=== PATIENT | female | born 1950 | race Caucasian/White ===

== ENCOUNTER 2018-03-25 17:18 | Emergency (ER) | payer MEDICARE, OTHER, SELFPAY ==
[2018-03-25 17:21] VITALS: BP 111/78; PULSE 77; RESP 20; TEMP 36.8; O2SAT 97; BMI 39.1
[2018-03-25 22:07] VITALS: BP 105/78; PULSE 76; RESP 18; O2SAT 100
[2018-03-25 23:00] VITALS: BP 117/51; PULSE 68; RESP 16
--- NOTE | 2018-03-25 23:22 | ED.NAVMDI ---
HPI - Nausea/Vomiting/Diarrhea General Chief complaint: Nausea/Vomiting/Diarrhea Stated complaint: SENT BY MD DEHYDRATION Time Seen by Provider: 03/25/18 23:22 Source: patient, family and RN notes reviewed Mode of arrival: ambulatory Limitations: no limitations History of Present Illness HPI Narrative: Patient is a 67-year-old female who presents for evaluation for possible dehydration. She overall has had fatigue over the last day or so she sometimes is having shaking but no fever. She has been eating and drinking some but definitely has a decreased appetite. No nausea vomiting or abdominal pain. She does have a productive cough which she says has been ongoing for a number of years and has not changed. She denies any chest pain or shortness of breath. She has no painful or frequent urination. Related Data Home Medications Medication Instructions Recorded Confirmed MULTIVITAMIN/MINERALS (Thera M 1 tab PO #0 05/21/08 Plus Tablet) carbamazepine 200 mg PO Q12H 03/26/18 03/26/18 hyoscyamine sulfate 0.125 mg PO BID-QID PRN 03/26/18 03/26/18 simvastatin 20 mg PO QAM 03/26/18 03/26/18 Allergies Allergy/AdvReac Type Severity Reaction Status Date / Time TAPE Allergy Severe REMOVES Uncoded 02/26/18 11:51 TOP LAYER OF SKIN PAPER/SILK TAPE OK Review of Systems Review of Systems All systems reviewed & are unremarkable except as noted in HPI and below Constitutional Reports body ache(s), Reports chills, Reports fatigue, Denies fever(s), Denies frequent falls, Denies lethargy and Reports malaise ENT Ears, Nose, Mouth, and Throat: Denies change in voice, Denies dizziness, Denies neck pain and Denies sore throat Cardiovascular Denies chest pain, Denies irregular heart rhythm, Denies lightheadedness, Denies palpitations and Denies orthopnea Respiratory Reports as per HPI, Denies change in phlegm color and Reports excessive phlegm production Gastrointestinal Gastrointestinal: Denies abdominal pain, Denies change in bowel habits, Denies diarrhea, Denies nausea and Denies vomiting Genitourinary Denies hematuria, Denies flank pain, Denies urinary incontinence and Denies urinary urgency Musculoskeletal Denies neck pain and Denies numbness Neurologic Denies behavioral changes, Denies confusion, Denies dizziness, Denies frequent falls and Denies numbness Psychiatric Denies behavioral changes and Denies confusion Endocrine Reports fatigue and Denies palpitations PFSH Medical History Cancer of kidney (Acute) History of nephrectomy, unilateral (Acute) Social History Smoking Status: Never smoker Exam Const General: cooperative and well developed Nutritional Appearance: well nourished Orientation: alert, awake, oriented x3 and not confused HENMT Head: normocephalic and atraumatic Teeth and gingiva: dentition normal Throat: tonsils normal and uvula midline Neck Neck: full ROM, no meningeal signs and midline deformity Resp Effort & Inspection: normal respiratory effort, able to speak in complete sentences, no respiratory distress and no use of accessory muscles Auscultation: clear to auscultation bilaterally, no rales, no rhonchi and no wheezes Cardio Rate: regular rate Rhythm: regular rhythm Heart Sounds: no click, no gallops, no murmurs and no rubs Pulses: normal peripheral pulses GI Inspection: non-distended Palpation: soft, no hepatosplenomegaly, No guarding, No pulsatile mass and No tender Auscultation: normal bowel sounds Skin General: no rashes or lesions noted, No jaundice and No petechiae Neuro General: alert, oriented x3, gait normal and no focal motor deficits Cranial Nerves: CN's II-XI intact bilaterally Speech: speech normal MDM - Nausea/Vomiting/Diarrhea MDM Narrative Medical decision making narrative: Patient is feeling much better after IV fluids. No leukocytosis or abnormal all labs. She is afebrile in the ED. Medical Records Attestation: I reviewed the patient's medical records. Lab Data Attestation: I reviewed the patient's lab results. Result diagrams: 03/25/18 23:30 03/25/18 23:30 Lab Results 03/25/18 03/25/18 03/25/18 Range/Units 23:30 23:30 23:30 WBC 6.3 (4.5-11.0) X10^3/uL RBC 4.64 (4.0-5.2) X10^6/uL Hgb 13.7 (12.0-16.0) g/dL Hct 39.8 (36-46) % MCV 85.8 (80-100) fL MCH 29.4 (26-34) PG MCHC 34.3 (30-36) % RDW 14.3 (11.6-14.8) % Plt Count 235 (150-400) X10^3/uL Neut % (Auto) 49.2 L (50-75) % Lymph % (Auto) 38.5 (25-40) % [place] % (Auto) 10.1 (3-14) % Eos % (Auto) 1.3 L (2-4) % Baso % (Auto) 0.9 (0-2) % Neut # (Auto) 3100 (0352-6969) /uL Sodium 142 (137-145) mmol/L Potassium 4.3 (3.4-5.1) mmol/L Chloride 103.0 (98-107) mmol/L Carbon Dioxide 26.0 (22-32) mmol/L BUN 20.0 H (7-17) mg/dL Creatinine 1.60 H (0.52-1.04) mg/dL Estimated GFR 32.0 L (>60) mL/min BUN/Creatinine Ratio 12.5 (6-22) Glucose 84 (80-110) mg/dL Lactate 0.8 (0.7-2.1) mmol/L Calcium 10.1 (8.4-10.2) mg/dL Total Bilirubin 1.1 (0.2-1.3) mg/dL AST 43 H (14-36) IU/L ALT 39 (9-52) IU/L Alkaline Phosphatase 90 (38-126) U/L Total Protein 7.8 (6.3-8.2) g/dL Albumin 4.7 (3.5-5.0) g/dL Globulin 3.1 (1.7-4.1) g/dL Albumin/Globulin Ratio 1.5 (1.0-2.8) Lipase 167 (23-300) U/L Imaging Data Chest x-ray: Attestation: I personally reviewed and interpreted this imaging study as follows: My impression: No acute abnormality Discharge Plan Departure Patient Disposition: Home, Self-Care Clinical Impression: Dehydration Instructions: Dehydration Activity Restrictions/Additional Instructions: *You have been diagnosed with dehydration *What to do: Increase fluid intake with water and/or Gatorade, at this time blood work and chest x-ray do not show any abnormalities *Take medications as directed *Follow up with your primary care provider in 2-3 days *Return to ER if you should have inability to tolerate fluids, dizziness, lightheadedness or any new, worsening or concerning symptoms Prescriptions: No Action MULTIVITAMIN/MINERALS (Thera M Plus Tablet) 1 tab PO Qty: 0 RF: 0 simvastatin 20 mg Tablet 20 mg PO QAM RF: 0 hyoscyamine sulfate 0.125 mg Tablet, Sublingual 0.125 mg PO BID-QID PRN (Reason: Pain (Scale Score 4-6)) RF: 0 carbamazepine 200 mg Capsule, Er Multiphase 12 Hr 200 mg PO Q12H RF: 0 Referrals: Erica Galindo PA-C [Primary Care Provider] - None
--- NOTE | 2018-03-25 23:29 | DI.RAD.S_ITS ---
PROCEDURE: XR CHEST 2V INDICATIONS: cough TECHNIQUE: 2 views of the chest were acquired. COMPARISON: Outside Film, CR, XR CHEST 2 VIEWS, 01/08/2018, 9:01. FINDINGS: Surgical changes and devices: None. Lungs and pleura: No pleural effusions or pneumothorax. Lungs are clear. Mediastinum: Mediastinal contours are normal. Heart size is normal. Bones and chest wall: No suspicious bony abnormalities. Soft tissues appear unremarkable. IMPRESSION: No acute cardiopulmonary disease process. Dictated by: Grace Chavez MD, PhD on 03/26/2018 at 8:38 Approved by: Grace Chavez MD, PhD on 03/26/2018 at 8:39
[2018-03-25 23:44] LABS: Add Manual Diff / Slide Review NO; Basophils Percent Auto 0.9 % (0-2); Eosinophils Percent Auto 1.3 % (2-4); Hematocrit 39.8 % (36-46); Hemoglobin 13.7 g/dL (12.0-16.0); Lymphocytes Percent Auto 38.5 % (25-40); Mean Corpuscular HGB Conc 34.3 % (30-36); Mean Corpuscular Hemoglobin 29.4 PG (26-34); Mean Corpuscular Volume 85.8 fL (80-100); Monocytes Percent Auto 10.1 % (3-14); Neutrophils Absolute Auto 3100 /uL (3000-5900); Neutrophils Percent Auto 49.2 % (50-75); Platelet Count 235 X10^3/uL (150-400); Red Blood Cell Count 4.64 X10^6/uL (4.0-5.2); Red Cell Distribution Width 14.3 % (11.6-14.8); White Blood Cell Count 6.3 X10^3/uL (4.5-11.0)
[2018-03-25] MEDS: SODIUM CHLORIDE 0.9% 1,000 ML 150 ML IV (23:45)
[2018-03-25 23:52] LABS: Lactate (Lactic Acid) 0.8 mmol/L (0.7-2.1)
[2018-03-25 23:53] LABS: Alanine Aminotransferase 39 IU/L (9-52); Albumin 4.7 g/dL (3.5-5.0); Albumin Globulin Ratio 1.5 (1.0-2.8); Alkaline Phosphatase 90 U/L (38-126); Aspartate Aminotransferase 43 IU/L (14-36); BUN Creatinine Ratio 12.5 (6-22); Bilirubin Total 1.1 mg/dL (0.2-1.3); Calcium 10.1 mg/dL (8.4-10.2); Globulin 3.1 g/dL (1.7-4.1); Glucose 84 mg/dL (80-110); HEMOLYSIS < 15 (0-50); Lipase 167 U/L (23-300); Potassium 4.3 mmol/L (3.4-5.1); Sodium 142 mmol/L (137-145); Total Protein 7.8 g/dL (6.3-8.2)
[2018-03-26 00:13] VITALS: PULSE 65; RESP 16; O2SAT 97
[2018-03-26 01:18] VITALS: BP 131/53; PULSE 67; RESP 18; O2SAT 96
[2018-03-26 01:59] VITALS: BP 127/53; PULSE 64; RESP 14; O2SAT 98
== END 2018-03-26 02:13 | disposition home or self-care (01) ==
PROVIDERS: Emergency Provider Emergency Medicine; PCP Physician Assistant Medical
DX: E86.0 Dehydration (principal)
CPT/HCPCS: 36591; 51798; 71046; 80053; 83605; 83690; 85025; 96360; 96361; 99284

== ENCOUNTER → 2018-09-01 12:34 | Outpatient (CLI) | payer MEDICARE, OTHER, SELFPAY ==
--- NOTE | 2018-09-01 | DI.CT.S_ITS ---
PROCEDURE: CT SINUS SCREEN WO CON INDICATIONS: SINIUSITIS TECHNIQUE: Noncontrast 3.0 mm axial images acquired from the frontal sinuses to the mid-sella, with coronal and sagittal reformats. For radiation dose reduction, the following was used: automated exposure control, adjustment of mA and/or kV according to patient size. COMPARISON: [facility], CT, SINUS SCREEN WO CONTRAST, 03/15/2015, 11:39. FINDINGS: Image quality: Diagnostic, with note made of motion artifact. Maxillary Sinuses: No bony remodeling or destruction. Sinuses are clear. Ethmoid Air Cells: No bony remodeling or destruction. Sinuses are clear. Sphenoid Sinuses: No bony remodeling or destruction. Sinuses are clear. Frontal Sinuses: No bony remodeling or destruction. Sinuses are clear. Ostiomeatal Complexes: Ostiomeatal complexes are patent, yet are constitutionally narrowed. There are bilateral Suzy cells. Miscellaneous: Visualized intra-orbital contents are normal. No lily bullosa or paradoxical turbinate curvature. There is mild S-shaped nasal septal deviation. Incidental note is made of hyperostosis frontalis. This is not considered to be pathologic in a woman of this age. IMPRESSION: No significant active paranasal sinus disease is seen. Constitutionally narrowed ostiomeatal complexes. S-shaped nasal septal deviation. Dictated by: Jluis Daley M.D. on 09/01/2018 at 12:01 Approved by: Jluis Daley M.D. on 09/01/2018 at 12:02
== END ==
PROVIDERS: PCP Physician Assistant Medical; Visit Provider Physician Assistant Medical
DX: J01.90 Acute sinusitis, unspecified (principal); J34.2 Deviated nasal septum
CPT/HCPCS: 70486

== ENCOUNTER → 2019-03-09 11:04 | Outpatient (CLI) | payer MEDICARE, OTHER, SELFPAY ==
[2019-03-09 12:07] LABS: Erythrocyte Sedimentation Rate 11 MM/HR (0-20)
[2019-03-09 12:38] LABS: Blood Urea Nitrogen 17 mg/dL (7-17); Estimated Glomerular Filt Rate 29.7 mL/min (>60)
== END ==
PROVIDERS: PCP Physician Assistant Medical; Visit Provider Family Medicine
DX: G44.52 New daily persistent headache (NDPH) (principal)
CPT/HCPCS: 36415; 82565; 84520; 85651

== ENCOUNTER → 2019-03-11 19:00 | Outpatient (CLI) | payer MEDICARE, OTHER, SELFPAY ==
--- NOTE | 2019-03-11 19:03 | DI.MRI.S_ITS ---
PROCEDURE: MR HEAD/BRAIN WO CON INDICATIONS: headaches TECHNIQUE: Non-contrast axial T1 spin echo, axial T2 fast spin echo, sagittal and axial FLAIR, coronal T2 fast spin echo, axial gradient echo, axial diffusion and ADC through the brain. COMPARISON: None. FINDINGS: Image quality: Excellent. CSF spaces: Ventricles appear symmetric in size and shape. Basal cisterns are patent. No extra-axial fluid collections. Brain: No intracranial bleeds or mass effects. There is cerebral volume loss for age. There are periventricular and deep white matter chronic small vessel ischemic changes. Brainstem appears normal. Diffusion-weighted images show no acute ischemic insults. No chronic ischemic insults. Normal intravascular flow voids are present. Skull and face: Calvarial bone marrow is normal in signal. Orbits are normal. Sinuses: Sinuses and mastoids are clear. IMPRESSION: No acute signal abnormality. Chronic age-appropriate senescent changes as above. Dictated by: Michele Lockhart M.D. on 03/12/2019 at 9:19 Approved by: Michele Lockhart M.D. on 03/12/2019 at 9:25
== END ==
PROVIDERS: Family Provider Physician Assistant Medical; PCP Physician Assistant Medical; Visit Provider Family Medicine
DX: R51 Headache (principal)
CPT/HCPCS: 70551

== ENCOUNTER 2019-06-19 10:25 | Day surgery (SDC) | payer MEDICARE, OTHER, SELFPAY ==
[2019-06-19] VITALS (10 sets, daily range): BP systolic 136–154; BP diastolic 70–95; PULSE 57–79; RESP 13–17; TEMP 36.4; O2SAT 93–100
--- NOTE | 2019-06-19 | PATH_ITS ---
[facility] Accession Number: [id number] . 01 Material submitted: . PART A: gastrointestinal site - GASTRIC FUNDIC POLYPS PART B: esophagus, E-G Junction - GE JUNCTION BIOPSIES . 01 Clinical history: . A: POSSIBLE GASTRIC FUNDIC POLYPS . 02 Diagnosis: A. Stomach, Polyps, Biopsies: Fundic gland polyps. No evidence of Helicobacter on H/E stain. Negative for intestinal metaplasia. Negative for dysplasia and malignancy. . B. Gastroesophageal Junction, Biopsies: Squamocolumnar junctional mucosa with mild active inflammation. Negative for intestinal metaplasia. Negative for dysplasia and malignancy. [facility]/06/22/2019 . 02 Electronically signed: . Robyn Bello MD, Pathologist NPI- [id number] . 01 Gross description: . Part A: GASTRIC FUNDIC POLYPS: Received in formalin are 4 fragment(s) of messer, soft tissue measuring 0.1 x 0.1 x 0.1 cm to 0.3 x 0.3 x 0.2 cm which is entirely submitted and submitted entirely in 1 cassette(s) Part B: GE JUNCTION BIOPSIES: Received in formalin are 3 fragment(s) of messer, soft tissue measuring 0.1 x 0.1 x 0.1 cm to 0.2 x 0.2 x 0.2 cm which is entirely submitted and submitted entirely in 1 cassette(s) /DMC /DMC . 02 Pathologist provided ICD-10: R10.9 . 02 CPT . 361885, [id number] Performed at: 01 [facility] [address] [facility], [place], [place] [id number] MD Bret Buchanan MD Phone: [phone] Performed at: 02 [facility] [place] [address] [place] [id number] MD Robyn Bello MD Phone: [phone]
[2019-06-19] MEDS: SODIUM CHLORIDE 0.9% 1,000 ML 200 ML IV (10:00)
--- NOTE | 2019-06-19 11:15 | PM.PREOP ---
Pre-operative Note Interval Note History & Physical reviewed/Exam performed by Physician: Yes Changes to H&P: No H&P completed within 30 days and has changed as indicated here:: See note 06/03 for H&P
--- NOTE | 2019-06-19 12:07 | P.OP.ENDO_ITS ---
Operative Date/Time/Diagnoses Date of procedure: 06/19/19 Time of procedure: 11:44 Post-op diagnosis: same (No cause for clearing of throat found. hiatal hernia. Possible Friedman's esophagus. extensive gastric fundic polyps.) Procedure & Clinicians Study performed: EGD with cold biopsy Same procedure as scheduled: Yes Indications: Evaluate for cause of chronic irritation to the throat with clearing of throat Surgeon: Baljit Winters Procedure Notes SCOAP/Timeout: Performed Procedure in detail: The patient had topical anesthetic applied to oropharynx. She was placed in left lateral decubitus position and underwent IV sedation directed by the surgeon consisting of fentanyl and Versed. A bite block was inserted and the scope was advanced through it into the esophagus. I carefully viewed the upper airway and the cord structures and the structures above the cords including the epiglottis and arytenoids all look normal. there was no inflammation. The esophagus was unremarkable though a bit short. GE junction was noted at 30 cm from the incisors. There was some slight irregularity in the area which was suggestive of possible Friedman's esophagus.. The stomach insufflated well. There was a hiatal hernia noted about 3-4 cm in length. there was an enormous number of what appeared to be gastric fundic polyps in the body. There were no lesions seen in the antrum or at the incisura. The pyloric channel was patent. The duodenum was unremarkable to the 4th part. The scope was brought back into the stomach and retroflexed. The proximal stomach was notable for the already mentioned hiatal hernia and the polyps.. The scope was straightened and biopsies were taken of numerous polyps. This was just meant to be a sampling. It would have been impossible and probably unnecessary to remove all of the polyps. The scope was then brought out through the esophagus . Biopsies were taken of the GE junction. The scope was removed slowly to make sure there was no esophageal lesion especially in the upper esophagus. the patient tolerated the procedure well. Curiously, when we a anesthetize the patient's throat with viscous lidocaine all of her throat clearing immediately ceased. She became very anxious but all of her vitals and so forth were normal. I could not identify any lesion that would cause her throat clearing and I wonder if this is a chronic condition made worse back anxiety. Scope withdrawal time: Not applicable Sedation minutes: 15 Findings: Friedman's esophagus (Possible. Biopsies taken), hiatal hernia and madhavi yp (Gastric fundic polyps clinically(benign lesions). Sampling performed to confirm diagnosis.) Specimen(s): other (Polyps and GE junction) Complications: none Plan for aftercare: Follow-up with her family doctor Follow up: as needed Disposition: PACU
== END 2019-06-19 12:59 | disposition home or self-care (01) ==
LOC: ENDO 10:28
PROVIDERS: Family Provider Physician Assistant Medical; PCP Specialist; Visit Provider Specialist
PROC: 0DJ08ZZ Inspection of Upper Intestinal Tract, Via Natural or Artificial Opening Endoscopic (ICD-10-PCS; CPT 43235; principal; 2019-06-19 11:45)
DX: J39.2 Other diseases of pharynx (principal); K31.7 Polyp of stomach and duodenum; K44.9 Diaphragmatic hernia without obstruction or gangrene
CPT/HCPCS: 43239; 88305; 99152

== ENCOUNTER 2020-06-12 03:57 | Emergency (ER) | payer MEDICARE, OTHER, SELFPAY ==
[2020-06-12 04:05] VITALS: BP 129/70; PULSE 63; RESP 15; TEMP 37.2; O2SAT 99; BMI 37.5
--- NOTE | 2020-06-12 04:10 | DI.RAD.S_ITS ---
PROCEDURE: XR WRIST RT MIN 3V INDICATIONS: fell on outstretched hand TECHNIQUE: 3 views of the wrist were acquired. COMPARISON: None. FINDINGS: Bones: There is mild irregularity of the ulnar styloid, which could indicate a minimally displaced fracture. Scaphoid view: Not requested Soft tissues: No suspicious soft tissue calcifications. IMPRESSION: Possible minimally displaced radial styloid fracture. Concordant with preliminary interpretation. Dictated by: Shirley Nobles M.D. on 06/12/2020 at 8:52 Approved by: Shirley Nobles M.D. on 06/12/2020 at 8:53
--- NOTE | 2020-06-12 05:00 | ED_ITS ---
HPI - General Adult General Chief complaint: Extremity Injury, Upper Stated complaint: fall/hurt right arm Time Seen by Provider: 06/12/20 04:16 Source: patient and family Mode of arrival: Ambulatory Limitations: no limitations History of Present Illness HPI narrative: Patient is a 70-year-old left-hand dominant female here for evaluation of a right wrist injury. Patient states that she got up to go to bed this evening and lost her balance and fell onto her right hand hurting her right wrist. She denies any other injuries from the event. She states that she is unsure exactly how she fell but does state that this is not unusual for her. She states that she occasionally just loses her balance and falls over. She is not on any anticoagulation. Placed some ice over the wrist prior to arrival and came into the emergency department. Related Data Home Medications Medication Instructions Recorded Confirmed simvastatin 20 mg PO QAM 03/26/18 06/19/19 cholecalciferol (vitamin D3) 25 1,000 unit PO DAILY 03/09/19 06/19/19 mcg (1,000 unit) capsule omeprazole magnesium 20 mg 20 mg PO DAILY 03/09/19 06/19/19 capsule,delayed release Previous Rx's Medication Instructions Recorded memantine 5 mg tablet 5 mg PO DAILY #30 tab 04/21/19 Allergies Allergy/AdvReac Type Severity Reaction Status Date / Time TAPE Allergy Severe REMOVES Uncoded 06/19/19 10:56 TOP LAYER OF SKIN PAPER/SILK TAPE OK Review of Systems Constitutional Constitutional: Reports frequent falls and Denies headache(s) ENT Ears, Nose, Mouth, and Throat: Denies vertigo, Denies dizziness, Denies headache(s) and Reports disequilibrium Cardiovascular Cardiovascular: Denies chest pain and Denies dyspnea Respiratory Respiratory: Denies dyspnea Gastrointestinal Gastrointestinal: Denies abdominal pain, Denies diarrhea, Denies nausea and Denies vomiting Musculoskeletal Comments: Right wrist pain Integumentary/Breasts Skin/Breast: Denies lesions and Denies rash Neurologic Neurologic: Denies vertigo, Denies dizziness, Reports frequent falls, Denies headache(s) and Reports disequilibrium Hematologic/Lymphatic Hematologic/Lymphatic: Denies easy bleeding and Denies easy bruising Patient History Medical History Cancer of kidney (Acute) History of nephrectomy, unilateral (Resolved) Surgical History (Updated 06/03/19 @ 10:58 by Rosy Linda RN) Hx of hysterectomy (Resolved) Hx of tonsillectomy (Resolved) Family History (Updated 06/03/19 @ 11:00 by Rosy Linda RN) Sister Hypertension Daughter Hypertension Mother Cancer Diabetes mellitus Grandfather Cancer Social History marital status: household members: spouse occupational status: previously employed Smoking Status: Never smoker alcohol intake: never substance use type: does not use Smoking Status: Never smoker alcohol intake frequency: 0-2 drinks per day Substance Use Type: does not use Exam Initial Vital Signs Initial Vital Signs: Vital Signs Temperature 99.0 F 06/12/20 04:05 Pulse Rate 63 06/12/20 04:05 Respiratory Rate 15 06/12/20 04:05 Blood Pressure 129/70 06/12/20 04:05 Pulse Oximetry 99 06/12/20 04:05 Const General: cooperative, comfortable and well developed Limitations: mental status not altered Cardio Pulses: radial pulses present on the right Skin Lesions: no lesions Rashes: no rashes Neuro General: patient alert, patient awake and patient oriented x3 Sensory Exam: no sensory deficits noted Extrem Other: Right shoulder and right elbow unremarkable. Patient is tender to palpation over the distal radius and has tenderness with pronation supination and flexion and extension. She does not have any tenderness over the anatomic snuffbox. The rest of her right hand and right fingers are unremarkable. Psych Appearance: grossly normal and well kempt Procedures Orthopedic Splinting/Casting Injury #1: Side: right Upper Extremity Injury Location: wrist Upper Extremity Immobilizer: thumb spica Post splinting neuro exam: intact Post splinting vascular exam: intact Placed by: Provider Course Orders Ordered: ED Orders 06/12/20 04:10 XR wrist RT min 3V Stat Discontinued Medications Acetaminophen (Tylenol) 650 mg PO NOW ONE Stop: 06/12/20 05:03 Last Admin: 06/12/20 05:06 Dose: 650 mg Documented by: TRACI Vital Signs Vital signs: Vital Signs - 8 hr 06/12/20 04:05 06/12/20 05:05 Temperature 99.0 F Pulse Rate 63 61 Respiratory Rate 15 15 Blood Pressure 129/70 127/60 Pulse Oximetry 99 94 Medical Decision Making Imaging Data Extremity x-ray #1: Attestation: I personally reviewed and interpreted this imaging study as follows: My Impression: Appears to be a cortical lucency the distal radius. MDM Narrative Medical decision making narrative: Patient is neurovascularly intact. It does appear to be a lucency of the distal radius noted on the x-ray and this does correspond to where she is having quite a bit of discomfort on her exam. Given this finding on the x-ray and here exam she was placed in a thumb spica splint. She was given instructions with regard to follow-up. She reports no other injuries from the event. Her fall this evening is not new for her. This does happen quite a bit. She states that she loses her balance and falls over. I did discuss with her the importance of talk with her primary doctor regarding this. She expressed understanding and agreement. Discharge Plan Departure Patient Disposition: Home Clinical Impression: Distal radius fracture, right Qualifiers: Encounter type: initial encounter Fracture type: closed Fracture morphology: unspecified fracture morphology Qualified Code(s): S52.501A - Unspecified fracture of the lower end of right radius, initial encounter for closed fracture Discharge Date/Time: 06/12/20 05:18 Instructions: How to Take Care of Your Splint, DI for Distal Radius Fracture Activity Restrictions/Additional Instructions: Recommend that on Saturday you contact your primary doctor's office and also the [facility] group at [phone] for a follow-up. The splint that was placed this evening needs to stay on an needs to stay clean and stay dry. Treated like cast. You can take Tylenol for any discomfort. Return to the emergency department for any new or worsening symptoms Prescriptions: No Action simvastatin 20 mg Tablet 20 mg PO QAM RF: 0 cholecalciferol (vitamin D3) 1,000 unit capsule 1,000 unit PO DAILY RF: 0 omeprazole magnesium [Acid Media Coordinator (omeprazole)] 20 mg capsule,delayed release(DR/EC) 20 mg PO DAILY RF: 0 memantine [Namenda] 5 mg tablet 5 mg PO DAILY Qty: 30 RF: 2 Referrals: Ariel Barillas MD [Primary Care Provider] -
[2020-06-12 05:05] VITALS: BP 127/60; PULSE 61; RESP 15; O2SAT 94
[2020-06-12] MEDS: ACETAMINOPHEN 325 MG TABLET 650 MG PO (05:06)
== END 2020-06-12 05:18 | disposition home or self-care (01) ==
PROVIDERS: Emergency Provider Emergency Medicine; Family Provider Physician Assistant Medical; PCP Internal Medicine
DX: S52.501A Unspecified fracture of the lower end of right radius, initial encounter for closed fracture (principal); W19.XXXA Unspecified fall, initial encounter
CPT/HCPCS: 73110; 99283

== ENCOUNTER 2021-04-13 19:24 | Emergency (ER) | payer MEDICARE, OTHER, SELFPAY ==
[2021-04-13 19:52] VITALS: BP 145/78; PULSE 66; RESP 15; TEMP 36.6; O2SAT 99; BMI 34.4
--- NOTE | 2021-04-13 22:19 | PC.NURSE ---
PT's daughter states pt has been gradually getting weaker over the past few months. States pt will become shakey then sleep for two days. Pt's daughter reports has seen pcp for this with out any answers. Denies any pain
--- NOTE | 2021-04-13 22:25 | ED_ITS ---
HPI - Weakness General Chief complaint: Weakness Stated complaint: weakness, shakey, not feeling well Time Seen by Provider: 04/13/21 20:00 Source: patient Mode of arrival: Wheelchair Limitations: no limitations History of Present Illness HPI Narrative: 70-year-old female nonsmoker with history of GERD presents with family in the chief complaint of significant fatigue ongoing for many months. They both admit that she has had extensive workups by her primary care provider which have thus far failed to demonstrate any tangible results. She denies any headache or blurred vision. She denies any numbness, tingling or unilateral weakness. She has had no fever or chills. She denies chest pain or shortness of breath. She denies any unusual bleeding, change in bowel habits or urinary complaints such as dysuria, frequency or urgency. She denies any significant dietary change. She does routinely have a gagging sensation attempt to clear her throat but denies any fever cough to suggest aspiration. She admits that this gagging has been worked up and has been evaluated by ENT without any result. She questions whether not this might contribute to some altered sleep but definitely admits that she is reluctant to go out in public because it is embarrassing. When questioned about depression she denies any chance,. Complaint: generalized weakness and lack of energy Onset (ago): month(s) Duration: constant Location: generalized Severity: moderate Relieving factors: none Exacerbating factors: none Related Data Home Medications Medication Instructions Recorded Confirmed simvastatin 20 mg PO QAM 03/26/18 06/19/19 cholecalciferol (vitamin D3) 25 1,000 unit PO DAILY 03/09/19 06/19/19 mcg (1,000 unit) capsule omeprazole magnesium 20 mg 20 mg PO DAILY 03/09/19 06/19/19 capsule,delayed release Previous Rx's Medication Instructions Recorded memantine 5 mg tablet 5 mg PO DAILY #30 tab 04/21/19 Allergies Allergy/AdvReac Type Severity Reaction Status Date / Time No Known Drug Allergies Allergy Verified 04/13/21 19:52 Review of Systems Constitutional Constitutional: Denies chills, Reports fatigue, Denies fever(s), Denies frequent falls, Denies lethargy and Reports weakness Eyes Eyes: Denies change in vision, Denies eye discharge, Denies irritation and Denies loss of vision ENT Ears, Nose, Mouth, and Throat: Denies change in voice, Denies dizziness, Denies neck pain, Denies sore throat and Denies throat swelling Cardiovascular Cardiovascular: Denies chest pain, Denies irregular heart rhythm, Denies lightheadedness, Denies palpitations, Denies dyspnea, Denies dyspnea on exertion and Denies orthopnea Respiratory Respiratory: Denies cough, Denies dyspnea, Denies dyspnea on exertion and Denies wheezing Gastrointestinal Gastrointestinal: Denies abdominal pain, Denies change in bowel habits, Denies diarrhea, Denies nausea and Denies vomiting Musculoskeletal Musculoskeletal: Denies neck pain and Denies numbness Integumentary/Breasts Skin/Breast: Denies pruritus, Denies erythema, Denies rash and Denies wounds Neurologic Neurologic: Denies behavioral changes, Denies confusion, Denies dizziness, Denies frequent falls, Denies loss of vision, Denies numbness and Reports weakness Psychiatric Psychiatric: Denies anxiety, Denies behavioral changes, Denies confusion, Denies depression, Denies homicidal ideation and Denies suicidal ideation Endocrine Endocrine: Reports fatigue, Denies flushing and Denies palpitations Hematologic/Lymphatic Hematologic/Lymphatic: Denies easy bruising Allergic/Immunologic Allergic/Immunologic: Denies urticaria, Denies throat swelling and Denies wheezing Patient History Medical History Cancer of kidney History of nephrectomy, unilateral Surgical History Hx of hysterectomy Hx of tonsillectomy Family History Sister Hypertension Daughter Hypertension Mother Cancer Diabetes mellitus Grandfather Cancer Social History marital status: household members: spouse occupational status: previously employed Smoking Status: Never smoker alcohol intake: never substance use type: does not use Smoking Status: Never smoker alcohol intake frequency: holidays/special occasions only Substance Use Type: does not use Exam Narrative Exam Narrative: GENERAL: [70] year old patient appears stated age. Well- nourished, well-developed patient, in mild distress. Frequently trying to clear her throat and unable to produce any sputum, guarding her airway without difficulty HEAD: Atraumatic. Normocephalic. EYES: Pupils equal round and reactive. Extraocular motions intact. No scleral icterus. No injection or drainage. ENT: Nose without bleeding, purulent drainage. Throat without erythema, tonsillar hypertrophy or exudate. Airway patent. NECK: Trachea midline. Non tender CARDIOVASCULAR: Regular rate and rhythm without murmurs, gallops, or rubs. RESPIRATORY: Clear to auscultation. Breath sounds equal bilaterally. No wheezes, rales, or rhonchi. GASTROINTESTINAL: Abdomen soft, non-tender, nondistended. EXTREMITIES: No edema or joint tenderness. BACK: Nontender without deformity or crepitance. No flank tenderness. NEURO: AOx3. SKIN: No rash or erythema of visible areas Initial Vital Signs Initial Vital Signs: Vital Signs Temperature 97.9 F 04/13/21 19:52 Pulse Rate 66 04/13/21 19:52 Respiratory Rate 15 04/13/21 19:52 Blood Pressure 145/78 H 04/13/21 19:52 Pulse Oximetry 99 04/13/21 19:52 Course Orders Ordered: ED Orders 04/13/21 22:25 EKG-12 Lead Stat 04/13/21 22:50 Complete Blood Count AUTO DIFF Stat Comprehensive Metabolic Panel Stat Discontinued Medications Sodium Chloride (Normal Saline 0.9%) 1,000 mls @ 1,000 mls/hr IV BOLUS ONE Stop: 04/13/21 23:24 Last Infusion: 04/14/21 00:45 Dose: 0 mls/hr Documented by: Admin: 04/13/21 23:11 Dose: 1,000 mls/hr Documented by: TRACI Vital Signs Vital signs: Vital Signs - 8 hr 04/13/21 22:46 04/13/21 22:48 04/13/21 23:00 Pulse Rate 81 69 95 H Blood Pressure 138/65 Pulse Oximetry 98 98 98 04/13/21 23:01 04/13/21 23:30 04/14/21 00:00 Pulse Rate 95 H 77 85 Blood Pressure 134/74 Pulse Oximetry 97 96 94 04/14/21 00:01 04/14/21 00:30 04/14/21 00:31 Pulse Rate 78 79 82 Blood Pressure 136/77 122/88 Pulse Oximetry 95 97 95 MDM - Weakness Lab Data Result diagrams: 04/13/21 22:50 05/27/21 22:50 Labs: Lab Results 04/13/21 04/13/21 Range/Units 22:50 22:50 WBC 6.0 (4.5-11.0) X10^3/uL RBC 4.55 (4.0-5.2) X10^6/uL Hgb 13.0 (12.0-16.0) g/dL Hct 39.1 (36-46) % MCV 85.8 (80-100) fL MCH 28.6 (26-34) PG MCHC 33.4 (30-36) % RDW 16.1 H (11.6-14.8) % Plt Count 237 (150-400) X10^3/uL Neut % (Auto) 51.0 (50-75) % Lymph % (Auto) 36.7 (25-40) % [place] % (Auto) 9.5 (3-14) % Eos % (Auto) 1.9 L (2-4) % Baso % (Auto) 0.9 (0-2) % Neut # (Auto) 3100 (5792-2642) /uL Lymph # (Auto) 2200 (6599-1269) /uL [place] # (Auto) 600 (0-900) /uL Eos # (Auto) 100 (0-450) /uL Baso # (Auto) 100 (0-100) /uL Sodium 139 (137-145) mmol/L Potassium 3.3 L (3.4-5.1) mmol/L Chloride 103 (98-107) mmol/L Carbon Dioxide 22 (22-32) mmol/L BUN 19 H (7-17) mg/dL Creatinine 1.73 H (0.52-1.04) mg/dL Estimated GFR 29.0 L (>60) mL/min BUN/Creatinine Ratio 11.0 (6-22) Glucose 86 (80-110) mg/dL Calcium 9.7 (8.4-10.2) mg/dL Total Bilirubin 0.9 (0.2-1.3) mg/dL AST 47 H (14-36) IU/L ALT 25 (<35) IU/L Alkaline Phosphatase 101 (38-126) U/L Total Protein 7.7 (6.3-8.2) g/dL Albumin 4.6 (3.5-5.0) g/dL Globulin 3.1 (1.7-4.1) g/dL Albumin/Globulin Ratio 1.5 (1.0-2.8) MDM Narrative Medical decision making narrative: Multiple etiologies for fatigue considered including depression, anemia, electrolyte abnormality, all of these thought unlikely given lack of findings on lab draw, and patient denial. We talked fairly at length about patient's sleep ab it is common whether not this gagging sensation is prevented her from sleeping. She thinks likely not but family questions this. Neuromuscular disorder considered but no other weakness noted, patient able to tolerate drinking liquids without difficulty. Extensive discussion regarding return precautions and the importance of follow-up with her primary care provider. Questions have been answered to her apparent satisfaction Discharge Plan Departure Patient Disposition: Home Clinical Impression: Gagging episode Fatigue Qualifiers: Fatigue type: unspecified Qualified Code(s): R53.83 - Other fatigue Instructions: DI for Dehydration -- Adult, DI for Fatigue Activity Restrictions/Additional Instructions: *You have been diagnosed with [chronic fatigue, gagging episodes. Very reassuring lab work and physical exam] *What to do: *Please continue to take your regular medications as directed. [ ] New medication prescriptions sent to your pharmacy: [ ] [ ] New medication written as a paper prescription [x ] No new medications given *Please follow up with your primary care provider in 2-3 days, call for an appointment. Let them know you were seen in the Emergency Department and that we ask that you be seen in follow up. We will electronically transmit a record of today's note if your PCP is in our system *If you do not have a primary care provider please contact the [facility] Resource line at [phone]. They will ask some questions about your medical history and help get you set up with a doctor in the community. *Return to Emergency Department if you should have any new, worsening or concerning symptoms, such as [fever greater than 101 F, shaking chills, worsening pain, persistent vomiting or other bothersome symptoms] Prescriptions: No Action simvastatin 20 mg Tablet 20 mg PO QAM RF: 0 cholecalciferol (vitamin D3) 1,000 unit capsule 1,000 unit PO DAILY RF: 0 omeprazole magnesium [Acid Supervisor [employer]ating Unit (omeprazole)] 20 mg capsule,delayed release(DR/EC) 20 mg PO DAILY RF: 0 memantine [Namenda] 5 mg tablet 5 mg PO DAILY Qty: 30 RF: 2 Referrals: Ariel Barillas MD [Primary Care Provider] -
[2021-04-13 22:46] VITALS: PULSE 81; O2SAT 98
[2021-04-13 22:48] VITALS: BP 138/65; PULSE 69; O2SAT 98
[2021-04-13 22:53] LABS: Add Manual Diff / Slide Review NO; Basophils Absolute Auto 100 /uL (0-100); Basophils Percent Auto 0.9 % (0-2); Eosinophils Absolute Auto 100 /uL (0-450); Eosinophils Percent Auto 1.9 % (2-4); Hematocrit 39.1 % (36-46); Lymphocytes Absolute Auto 2200 /uL (1100-4500); Lymphocytes Percent Auto 36.7 % (25-40); Mean Corpuscular HGB Conc 33.4 % (30-36); Mean Corpuscular Hemoglobin 28.6 PG (26-34); Mean Corpuscular Volume 85.8 fL (80-100); Monocytes Absolute Auto 600 /uL (0-900); Monocytes Percent Auto 9.5 % (3-14); Neutrophils Absolute Auto 3100 /uL (1500-7000); Platelet Count 237 X10^3/uL (150-400); Red Blood Cell Count 4.55 X10^6/uL (4.0-5.2); Red Cell Distribution Width 16.1 % (11.6-14.8)
[2021-04-13 23:00] VITALS: PULSE 95; O2SAT 98
[2021-04-13 23:01] VITALS: BP 134/74; PULSE 95; O2SAT 97
[2021-04-13 23:05] LABS: Alanine Aminotransferase 25 IU/L (<35); Albumin 4.6 g/dL (3.5-5.0); Albumin Globulin Ratio 1.5 (1.0-2.8); Alkaline Phosphatase 101 U/L (38-126); Aspartate Aminotransferase 47 IU/L (14-36); Bilirubin Total 0.9 mg/dL (0.2-1.3); Blood Urea Nitrogen 19 mg/dL (7-17); Calcium 9.7 mg/dL (8.4-10.2); Carbon Dioxide 22 mmol/L (22-32); Chloride 103 mmol/L (98-107); Globulin 3.1 g/dL (1.7-4.1); Glucose 86 mg/dL (80-110); HEMOLYSIS < 15 (0-50); Potassium 3.3 mmol/L (3.4-5.1); Sodium 139 mmol/L (137-145); Total Protein 7.7 g/dL (6.3-8.2)
[2021-04-13] MEDS: SODIUM CHLORIDE 0.9% 1,000 ML 1000 ML IV (23:11)
--- NOTE | 2021-04-13 23:15 | PC.NURSE ---
Pt stated coughing/trying to get phlegm out of throat. pt has been doing this constant for the last 15 min. Daughter reports patient has had these episodes for at home with nothing really helping. Asked if pt takes any medications such as mucinex to help remove the phlegm. Daughter state she hasn't.
[2021-04-13 23:30] VITALS: PULSE 77; O2SAT 96
[2021-04-14] VITALS: PULSE 85; O2SAT 94
[2021-04-14 00:01] VITALS: BP 136/77; PULSE 78; O2SAT 95
[2021-04-14 00:30] VITALS: PULSE 79; O2SAT 97
[2021-04-14 00:31] VITALS: BP 122/88; PULSE 82; O2SAT 95
== END 2021-04-14 01:11 | disposition home or self-care (01) ==
PROVIDERS: Emergency Provider Emergency Medicine; Family Provider Physician Assistant Medical; PCP Internal Medicine
DX: R53.83 Other fatigue (principal); R19.8 Other specified symptoms and signs involving the digestive system and abdomen; R53.1 Weakness
CPT/HCPCS: 36415; 80053; 85025; 93005; 96360; 96361; 99284

== ENCOUNTER 2021-06-14 18:16 | Emergency (ER) | payer MEDICARE, OTHER, SELFPAY ==
[2021-06-14 18:20] VITALS: BP 186/84; PULSE 85; RESP 18; TEMP 36.7; O2SAT 95; BMI 40.7
--- NOTE | 2021-06-14 18:43 | DI.US.S_ITS ---
PROCEDURE: US PERIPH VENOUS LOW EXTREM LT INDICATIONS: EDEMA TECHNIQUE: Real-time imaging, as well as color and pulse Doppler interrogation, were performed of the lower extremity deep veins from the inguinal ligament to the popliteal fossa. COMPARISON: None. FINDINGS: The common femoral, femoral and popliteal veins are normally compressible, and free of intraluminal thrombus. Color and pulse Doppler demonstrate normal phasic intraluminal flow. There is normal augmentation response to distal compression maneuver. IMPRESSION: No DVT in the left lower extremity. Dictated by: Yo Pittman M.D. on 06/14/2021 at 20:49 Approved by: Yo Pittman M.D. on 06/14/2021 at 20:49
[2021-06-14 20:58] LABS: Add Manual Diff / Slide Review NO; Basophils Absolute Auto 100 /uL (0-100); Basophils Percent Auto 1.2 % (0-2); Eosinophils Absolute Auto 200 /uL (0-450); Eosinophils Percent Auto 3.6 % (2-4); Hematocrit 37.6 % (36-46); Lymphocytes Absolute Auto 1900 /uL (1100-4500); Lymphocytes Percent Auto 31.7 % (25-40); Mean Corpuscular Hemoglobin 27.6 PG (26-34); Mean Corpuscular Volume 86.3 fL (80-100); Monocytes Absolute Auto 500 /uL (0-900); Monocytes Percent Auto 8.9 % (3-14); Neutrophils Absolute Auto 3200 /uL (1500-7000); Neutrophils Percent Auto 54.6 % (50-75); Platelet Count 256 X10^3/uL (150-400); Red Blood Cell Count 4.35 X10^6/uL (4.0-5.2); Red Cell Distribution Width 15.3 % (11.6-14.8); White Blood Cell Count 5.9 X10^3/uL (4.5-11.0)
[2021-06-14 21:12] LABS: Alanine Aminotransferase 19 IU/L (<35); Albumin 4.2 g/dL (3.5-5.0); Albumin Globulin Ratio 1.5 (1.0-2.8); Alkaline Phosphatase 102 U/L (38-126); Aspartate Aminotransferase 32 IU/L (14-36); BUN Creatinine Ratio 16.6 (6-22); Bilirubin Total 0.6 mg/dL (0.2-1.3); Blood Urea Nitrogen 25 mg/dL (7-17); Calcium 9.6 mg/dL (8.4-10.2); Carbon Dioxide 27 mmol/L (22-32); Chloride 106 mmol/L (98-107); Estimated Glomerular Filt Rate 33.8 mL/min (>60); Globulin 2.8 g/dL (1.7-4.1); Glucose 97 mg/dL (80-110); HEMOLYSIS 21 (0-50); Potassium 4.2 mmol/L (3.4-5.1); Sodium 140 mmol/L (137-145)
[2021-06-14 21:21] LABS: NT-proBNP (BNP-Adult 18+) 125 pg/mL (<125)
--- NOTE | 2021-06-14 22:48 | ED_ITS ---
HPI - Extremity Problem General Chief complaint: Extremity Problem,Nontraumatic Stated complaint: swelling on left ankle, leg pain Time Seen by Provider: 06/14/21 22:48 Source: patient Mode of arrival: Ambulatory Limitations: no limitations History of Present Illness HPI Narrative: Patient here for left foot and ankle swelling that started yesterday. No known injury. No skin injury. No history of blood clots in legs or lungs. No chest pain or dyspnea. No history of congestive heart failure. Patient states she does elevate her feet when at rest. No new shoe wear. Patient here with daughter. Related Data Home Medications Medication Instructions Recorded Confirmed simvastatin 20 mg tablet 20 mg PO QAM 03/26/18 06/19/19 cholecalciferol (vitamin D3) 25 1,000 unit PO DAILY 03/09/19 06/19/19 mcg (1,000 unit) capsule omeprazole magnesium 20 mg 20 mg PO DAILY 03/09/19 06/19/19 capsule,delayed release (Acid Hearing Therapy Director (omeprazole)) Previous Rx's Medication Instructions Recorded memantine 5 mg tablet (Namenda) 5 mg PO DAILY #30 tab 04/21/19 Allergies Allergy/AdvReac Type Severity Reaction Status Date / Time No Known Drug Allergies Allergy Verified 06/14/21 18:20 Review of Systems Review of Systems Narrative: GENERAL: Denies chills, fatigue, malaise, fever, sweats. HEENT: Denies sinus pain, ear pain, sore throat RESPIRATORY: Denies dyspnea, cough CARDIOVASCULAR: Denies chest pain, palpitations GASTROINTESTINAL: Denies nausea, vomiting, abdominal pain : Denies dysuria, frequency, hematuria MUSCULOSKELETAL: denies muscle or bony pain complains of edema SKIN: Denies rash, skin lesions NEUROLOGIC: Denies weakness, numbness ROS Unobtainable: All systems reviewed & are unremarkable except as noted in HPI and below Patient History Medical History Cancer of kidney History of nephrectomy, unilateral Surgical History Hx of hysterectomy Hx of tonsillectomy Family History Sister Hypertension Daughter Hypertension Mother Cancer Diabetes mellitus Grandfather Cancer Social History marital status: household members: spouse occupational status: previously employed Smoking Status: Never smoker alcohol intake: never substance use type: does not use Smoking Status: Never smoker alcohol intake frequency: holidays/special occasions only Substance Use Type: does not use Exam Narrative Exam Narrative: GENERAL: in no distress, not toxic not dyspneic HEAD: Normocephalic. CARDIOVASCULAR: Regular rate and rhythm without murmurs RESPIRATORY: Clear to auscultation. Breath sounds equal bilaterally. No wheezes, rales, or rhonchi. EXTREMITIES: No gross deformities. Examination bilateral feet ankles and legs. Coarsely symmetric. Left foot slightly more edematous at the proximal dorsum surface. No erythema or induration. Nontender. Nontender ankle and foot. Strong pedal pulse with light touch intact to foot and toes. No pain with Homans and Hernandez test on the left calf. No palpable cords. NEURO: AOx4. SKIN: Warm and dry PSYCH: Not anxious, is cooperative Initial Vital Signs Initial Vital Signs: Vital Signs Temperature 98.1 F 06/14/21 18:20 Pulse Rate 85 06/14/21 18:20 Respiratory Rate 18 06/14/21 18:20 Blood Pressure 186/84 H 06/14/21 18:20 Pulse Oximetry 95 06/14/21 18:20 Course Course Course Narrative: No new issues during course of stay. Orders Ordered: ED Orders 06/14/21 18:43 [facility] venous low extrem lt Stat 06/14/21 20:49 Complete Blood Count AUTO DIFF Stat Comprehensive Metabolic Panel Stat NT-proBNP (BNP-Adult 18+) Stat Reevaluation(s) Reevaluation #1: Reviewed results with patient and daughter. They understand the long wait and are not upset. They agree with treatment plan and follow-up Time: 22:58 Vital Signs Vital signs: Vital Signs - 8 hr 06/14/21 18:20 Temperature 98.1 F Pulse Rate 85 Respiratory Rate 18 Blood Pressure 186/84 H Pulse Oximetry 95 MDM - Extremity (Nontraumatic) Differential Diagnosis Differential diagnosis: Likely superficial thrombophlebitis, lower extremity edema and deep vein thrombosis of lower extremity Lab Data Result diagrams: 06/14/21 20:49 06/14/21 20:49 Labs: Lab Results 06/14/21 06/14/21 Range/Units 20:49 20:49 WBC 5.9 (4.5-11.0) X10^3/uL RBC 4.35 (4.0-5.2) X10^6/uL Hgb 12.0 (12.0-16.0) g/dL Hct 37.6 (36-46) % MCV 86.3 (80-100) fL MCH 27.6 (26-34) PG MCHC 32.0 (30-36) % RDW 15.3 H (11.6-14.8) % Plt Count 256 (150-400) X10^3/uL Neut % (Auto) 54.6 (50-75) % Lymph % (Auto) 31.7 (25-40) % [place] % (Auto) 8.9 (3-14) % Eos % (Auto) 3.6 (2-4) % Baso % (Auto) 1.2 (0-2) % Neut # (Auto) 3200 (8996-8760) /uL Lymph # (Auto) 1900 (9198-6058) /uL [place] # (Auto) 500 (0-900) /uL Eos # (Auto) 200 (0-450) /uL Baso # (Auto) 100 (0-100) /uL Sodium 140 (137-145) mmol/L Potassium 4.2 (3.4-5.1) mmol/L Chloride 106 (98-107) mmol/L Carbon Dioxide 27 (22-32) mmol/L BUN 25 H (7-17) mg/dL Creatinine 1.51 H (0.52-1.04) mg/dL Estimated GFR 33.8 L (>60) mL/min BUN/Creatinine Ratio 16.6 (6-22) Glucose 97 (80-110) mg/dL Calcium 9.6 (8.4-10.2) mg/dL Total Bilirubin 0.6 (0.2-1.3) mg/dL AST 32 (14-36) IU/L ALT 19 (<35) IU/L Alkaline Phosphatase 102 (38-126) U/L NT-Pro-B Natriuret Pep 125 H (<125) pg/mL Total Protein 7.0 (6.3-8.2) g/dL Albumin 4.2 (3.5-5.0) g/dL Globulin 2.8 (1.7-4.1) g/dL Albumin/Globulin Ratio 1.5 (1.0-2.8) Imaging Data US - DVT: Radiologist's Impression: Ultrasound ReportSigned Patient: Cheryle Loja [facility]#: [id number]: 8Acct:[id number]/Sex: 71 / FDate of Service: 06/14/21Loc: EDAccession Number: [id number] Procedure: US periph venous low extrem lt Ordering Provider: Piter Barton MD PROCEDURE: US PERIP VENOUS LOW EXTREM LT INDICATIONS: EDEMA TECHNIQUE: Real-time imaging, as well as color and pulse Doppler interrogation, were perfor med of the lower extremity deep veins from the inguinal ligament to the popliteal fossa. COMPARISON: None. FINDINGS: The common femoral, femoral and popliteal veins are normally compressible, and free of intraluminal thrombus. Color and pulse Doppler demonstrate normal phasic intraluminal flow. There is normal augmentation response to distal compression maneuver. IMPRESSION: No DVT in the left lower extremity. Dictated by: Yo Pittman M.D. on 06/14/2021 at 20:49 Approved by: Yo Pittman M.D. on 06/14/2021 at 20:49 [facility] Narrative Medical decision making narrative: Appropriate discharge home examined laboratory studies reassuring. Return precautions reviewed patient and daughter. They agree with treatment plan. Discharge Plan Departure Patient Disposition: Home Clinical Impression: Lower extremity edema Instructions: DI for Edema Due to Venous Stasis, Edema Activity Restrictions/Additional Instructions: Return if worse or any questions or concerns. Continue elevating your feet and legs when at rest. Try to elevate above the level of the heart. Recommend using compression stockings to help mobilize fluid from your feet and ankles. See family doctor in a week for recheck. Prescriptions: No Action simvastatin 20 mg Tablet 20 mg PO QAM RF: 0 cholecalciferol (vitamin D3) 1,000 unit capsule 1,000 unit PO DAILY RF: 0 omeprazole magnesium [Acid Hearing Therapy Director (omeprazole)] 20 mg capsule,delayed release(DR/EC) 20 mg PO DAILY RF: 0 memantine [Namenda] 5 mg tablet 5 mg PO DAILY Qty: 30 RF: 2 Referrals: Ariel Barillas MD [Primary Care Provider] -
[2021-06-14 23:02] VITALS: BP 141/87; PULSE 67; RESP 16; O2SAT 99
== END 2021-06-14 23:04 | disposition home or self-care (01) ==
PROVIDERS: Emergency Provider Emergency Medicine; Family Provider Physician Assistant Medical; PCP Internal Medicine
DX: R60.0 Localized edema (principal)
CPT/HCPCS: 36415; 80053; 83880; 85025; 93971; 99283; 99284

== ENCOUNTER 2021-07-01 15:13 | Emergency (ER) | payer MEDICARE, OTHER, SELFPAY ==
[2021-07-01] VITALS (10 sets, daily range): BP systolic 154–184; BP diastolic 65–93; PULSE 66–89; RESP 16–22; TEMP 36.6; O2SAT 93–100
--- NOTE | 2021-07-01 15:16 | DI.RAD.S_ITS ---
PROCEDURE: XR CHEST 1V INDICATIONS: chest pain TECHNIQUE: One view of the chest was acquired. COMPARISON: [facility], CR, XR CHEST 2V, 03/25/2018, 23:11. FINDINGS: Surgical changes and devices: None. Lungs and pleura: Lungs are clear. No pleural effusions or pneumothorax. Mediastinum: Mediastinal contours appear normal. Heart size is normal. Bones and chest wall: No suspicious bony lesions. Overlying soft tissues appear unremarkable. IMPRESSION: No acute cardiopulmonary findings Approved by: Juventino Byrnes M.D. on 07/01/2021 at 15:04
--- NOTE | 2021-07-01 15:33 | ED_ITS ---
HPI - General Adult General Chief complaint: Weakness Stated complaint: Generalized Weakness Time Seen by Provider: 07/01/21 15:30 History of Present Illness HPI narrative: 71-year-old woman with a history of dementia, kidney cancer with nephrectomy 3 years ago, continued issues with weakness low energy low oral intake dysphagia symptoms. She has seen multiple providers and had significant workup for this. Currently lives with her and their adult daughter takes care of both of them. She comes in today accompanied by her sister complaining of significantly increased weakness to the point where she was unable to lift up her legs and then a slight tightness throughout her chest with breathing which was the main impetus for today's visit. Related Data Home Medications Medication Instructions Recorded Confirmed simvastatin 20 mg tablet 20 mg PO QAM 03/26/18 06/19/19 cholecalciferol (vitamin D3) 25 1,000 unit PO DAILY 03/09/19 06/19/19 mcg (1,000 unit) capsule omeprazole magnesium 20 mg 20 mg PO DAILY 03/09/19 06/19/19 capsule,delayed release (Acid [employer] (omeprazole)) Previous Rx's Medication Instructions Recorded memantine 5 mg tablet (Namenda) 5 mg PO DAILY #30 tab 04/21/19 Allergies Allergy/AdvReac Type Severity Reaction Status Date / Time No Known Drug Allergies Allergy Verified 07/01/21 15:48 Review of Systems Review of Systems Narrative: Patient's dementia is significant enough that review of systems is otherwise unhelpful. Patient History Medical History (Updated 07/01/21 @ 18:25 by Brittny Leal MD) Cancer of kidney Dementia History of nephrectomy, unilateral Surgical History Hx of hysterectomy Hx of tonsillectomy Family History Sister Hypertension Daughter Hypertension Mother Cancer Diabetes mellitus Grandfather Cancer Social History marital status: household members: spouse occupational status: previously employed Smoking Status: Never smoker alcohol intake: never substance use type: does not use Smoking Status: Never smoker alcohol intake frequency: holidays/special occasions only Substance Use Type: does not use Exam Narrative Exam Narrative: General: no acute distress. Flat affect HEENT: Moist mucous membranes, normal sclera with reactive pupils, Neck: No JVD, supple Respiratory: Lungs are clear to auscultation, no wheezing no rales no rhonchi. Full and symmetrical air movement Cardiac: Regular rate and rhythm no murmurs no bruits Abdomen: Soft, nontender, good bowel tones, no flank pain Skin: Warm and dry, no rashes Neurologic: Globally weak but no localizing abnormalities is able to stand and lift legs which she was not able to do earlier today Extremities: No trauma, well perfused Psych: Dementia Initial Vital Signs Initial Vital Signs: Vital Signs Temperature 97.9 F 07/01/21 15:48 Pulse Rate 89 07/01/21 15:48 Respiratory Rate 22 07/01/21 15:48 Blood Pressure 160/74 H 07/01/21 15:48 Pulse Oximetry 96 07/01/21 15:48 Course Orders Ordered: Discontinued Medications Acetaminophen (Acetaminophen 325 Mg Tablet) 650 mg PO Q4HR PRN PRN Reason: Fever/Mild Pain (1-3) Last Admin: 07/01/21 18:25 Dose: 650 mg Documented by: ANDRE Ibuprofen (Ibuprofen 400 Mg Tablet) 400 mg PO NOW ONE Stop: 07/01/21 18:19 Last Admin: 07/01/21 18:25 Dose: 400 mg Documented by: ANDRE Vital Signs Vital signs: Vital Signs - 8 hr 07/01/21 15:48 07/01/21 16:30 Temperature 97.9 F Pulse Rate 89 70 Respiratory Rate 22 18 Blood Pressure 160/74 H 154/90 H Pulse Oximetry 96 93 Medical Decision Making Lab Data Result diagrams: 07/01/21 15:40 07/01/21 15:40 Labs: Lab Results 07/01/21 07/01/21 07/01/21 Range/Units 15:40 15:40 16:00 WBC 5.3 (4.5-11.0) X10^3/uL RBC 4.58 (4.0-5.2) X10^6/uL Hgb 12.9 (12.0-16.0) g/dL Hct 39.0 (36-46) % MCV 85.2 (80-100) fL MCH 28.2 (26-34) PG MCHC 33.1 (30-36) % RDW 15.1 H (11.6-14.8) % Plt Count 264 (150-400) X10^3/uL Neut % (Auto) 61.8 (50-75) % Lymph % (Auto) 25.9 (25-40) % Kane % (Auto) 10.3 (3-14) % Eos % (Auto) 1.4 L (2-4) % Baso % (Auto) 0.6 (0-2) % Neut # (Auto) 3200 (4422-5401) /uL Lymph # (Auto) 1400 (9402-7337) /uL Kane # (Auto) 500 (0-900) /uL Eos # (Auto) 100 (0-450) /uL Baso # (Auto) 0 (0-100) /uL Sodium 140 (137-145) mmol/L Potassium 3.6 (3.4-5.1) mmol/L Chloride 103 (98-107) mmol/L Carbon Dioxide 24 (22-32) mmol/L BUN 18 H (7-17) mg/dL Creatinine 1.44 H (0.52-1.04) mg/dL Estimated GFR 35.7 L (>60) mL/min BUN/Creatinine Ratio 12.5 (6-22) Glucose 87 (80-110) mg/dL Calcium 10.2 (8.4-10.2) mg/dL Total Bilirubin 1.0 (0.2-1.3) mg/dL AST 33 (14-36) IU/L ALT 20 (<35) IU/L Alkaline Phosphatase 91 (38-126) U/L Total Creatine Kinase 239 H (30-135) U/L CK-MB (CK-2) 1.79 (<2.37) ng/mL CK-MB (CK-2) Rel Index 0.7 L (1.5-5.0) % Troponin I < 0.012 (0.01-0.034) ng/mL Total Protein 7.5 (6.3-8.2) g/dL Albumin 4.4 (3.5-5.0) g/dL Globulin 3.1 (1.7-4.1) g/dL Albumin/Globulin Ratio 1.4 (1.0-2.8) Lipase 121 (23-300) U/L Urine Color Urine Appearance Urine pH (4.5-8.0) Ur Specific [place] (1.000-1.035) Urine Protein (Negative) Urine Glucose (UA) (Negative) g/dL Urine Ketones (NEGATIVE) Urine Occult Blood (Negative) Urine Nitrate (Negative) Urine Bilirubin (NEGATIVE) Urine Urobilinogen (0.2) E.U./dL Ur Leukocyte Esterase (NEGATIVE) Urine RBC (0-5/HPF) Urine WBC (0-5/HPF) Ur Squamous Epith Cells (0-5/HPF) Urine Bacteria (None) Ur Culture Indicated? SARS-CoV-2 (PCR) Negative (Negative) 07/01/21 Range/Units 18:05 WBC (4.5-11.0) X10^3/uL RBC (4.0-5.2) X10^6/uL Hgb (12.0-16.0) g/dL Hct (36-46) % MCV (80-100) fL MCH (26-34) PG MCHC (30-36) % RDW (11.6-14.8) % Plt Count (150-400) X10^3/uL Neut % (Auto) (50-75) % Lymph % (Auto) (25-40) % Kane % (Auto) (3-14) % Eos % (Auto) (2-4) % Baso % (Auto) (0-2) % Neut # (Auto) (9951-0882) /uL Lymph # (Auto) (6004-4332) /uL Kane # (Auto) (0-900) /uL Eos # (Auto) (0-450) /uL Baso # (Auto) (0-100) /uL Sodium (137-145) mmol/L Potassium (3.4-5.1) mmol/L Chloride (98-107) mmol/L Carbon Dioxide (22-32) mmol/L BUN (7-17) mg/dL Creatinine (0.52-1.04) mg/dL Estimated GFR (>60) mL/min BUN/Creatinine Ratio (6-22) Glucose (80-110) mg/dL Calcium (8.4-10.2) mg/dL Total Bilirubin (0.2-1.3) mg/dL AST (14-36) IU/L ALT (<35) IU/L Alkaline Phosphatase (38-126) U/L Total Creatine Kinase (30-135) U/L CK-MB (CK-2) (<2.37) ng/mL CK-MB (CK-2) Rel Index (1.5-5.0) % Troponin I (0.01-0.034) ng/mL Total Protein (6.3-8.2) g/dL Albumin (3.5-5.0) g/dL Globulin (1.7-4.1) g/dL Albumin/Globulin Ratio (1.0-2.8) Lipase (23-300) U/L Urine Color Yellow Urine Appearance Clear Urine pH 5.0 (4.5-8.0) Ur Specific [place] 1.010 (1.000-1.035) Urine Protein Negative (Negative) Urine Glucose (UA) Negative (Negative) g/dL Urine Ketones Trace H (NEGATIVE) Urine Occult Blood Negative (Negative) Urine Nitrate Negative (Negative) Urine Bilirubin Negative (NEGATIVE) Urine Urobilinogen 0.2 (0.2) E.U./dL Ur Leukocyte Esterase Negative (NEGATIVE) Urine RBC None seen (0-5/HPF) Urine WBC 1-5/hpf (0-5/HPF) Ur Squamous Epith Cells 5-10 /hpf H (0-5/HPF) Urine Bacteria None seen (None) Ur Culture Indicated? Cult not indicated SARS-CoV-2 (PCR) (Negative) Imaging Data Chest x-ray: Radiologist's Impression: FINDINGS: Surgical changes and devices: None. Lungs and pleura: Lungs are clear. No pleural effusions or pneumothorax. Mediastinum: Mediastinal contours appear normal. Heart size is normal. Bones and chest wall: No suspicious bony lesions. Overlying soft tissues appear unremarkable. IMPRESSION: No acute cardiopulmonary findings Approved by: Juventino Byrnes M.D. on 07/01/2021 at 15:04 CT scan - head: Radiologist's Impression: FINDINGS: Image quality: Excellent. CSF spaces: Basal cisterns are patent. No extra-axial fluid collections. The ventricles are symmetric in size and shape. Brain: No intracranial bleeds or masses. There is cerebral volume loss for age, with resultant ventricular and sulcal prominence. There are periventricular and deep white matter chronic small vessel ischemic changes. There is intracranial internal carotid artery atherosclerosis. Skull and face: Calvarium and visualized facial bones appear intact, without suspicious lesions. Sinuses: Visualized sinuses and mastoids are clear. IMPRESSION: Atrophy and chronic ischemic change without acute hemorrhage, infarct or mass lesion Approved by: Juventino Byrnes M.D. on 07/01/2021 at 16:23 ECG Data Interpretation: No acute ischemic changes MDM Narrative Medical decision making narrative: 71-year-old woman with progressive dementia presents with continued complaints of intermittent weakness. Extensive workup has been unrevealing. She does have a history of a renal cell carcinoma and has not had recent head imaging so that was done today and revealed no evidence of metastatic disease masses or lesions. Because her weakness is waxing and waning I a do not suspect other cord syndromes, infection, epidural abscess, polymyalgia rheumatica is entertained but again symptoms resolved spontaneously. Patient had complained of some mild central chest tightness and this to is unremarkable. At this time, I suspect that many of her symptoms are related to her dementia and are psychogenic. I have not found any obvious medical complication or abnormality that would direct further workup or suggest hospital admission at this time. Findings were shared with patient's sister as well as the patient herself. Both are agreeable with home discharge. Discharge Plan Departure Patient Disposition: Home Clinical Impression: Weakness Dementia Qualifiers: Dementia type: unspecified type Dementia behavioral disturbance: without behavioral disturbance Qualified Code(s): F03.90 - Unspecified dementia without behavioral disturbance Instructions: DI for Muscle Weakness Activity Restrictions/Additional Instructions: Thank you for coming in today Your head CT was unremarkable. There is no evidence of metastatic cancer, masses or stroke. Your labs are again, reassuring. There is no electrolyte abnormalities or evidence of overwhelming infection. I do not have an explanation for your recurrent episodic weakness, but I am also not finding any life-threatening diagnoses today Please follow-up with your primary care doctor Prescriptions: No Action simvastatin 20 mg Tablet 20 mg PO QAM RF: 0 cholecalciferol (vitamin D3) 1,000 unit capsule 1,000 unit PO DAILY RF: 0 omeprazole magnesium [Acid [employer] (omeprazole)] 20 mg capsule,delayed release(DR/EC) 20 mg PO DAILY RF: 0 memantine [Namenda] 5 mg tablet 5 mg PO DAILY Qty: 30 RF: 2 Referrals: Ariel Barillas MD [Primary Care Provider] -
--- NOTE | 2021-07-01 16:02 | DI.CT.S_ITS ---
PROCEDURE: CT HEAD/BRAIN WO CON INDICATIONS: altered mental status and intermittent weakness TECHNIQUE: Noncontrast 4.5 mm thick angled axial sections acquired from the foramen magnum to the vertex, with coronal and sagittal reformats. For radiation dose reduction, the following was used: automated exposure control, adjustment of mA and/or kV according to patient size. COMPARISON: None. FINDINGS: Image quality: Excellent. CSF spaces: Basal cisterns are patent. No extra-axial fluid collections. The ventricles are symmetric in size and shape. Brain: No intracranial bleeds or masses. There is cerebral volume loss for age, with resultant ventricular and sulcal prominence. There are periventricular and deep white matter chronic small vessel ischemic changes. There is intracranial internal carotid artery atherosclerosis. Skull and face: Calvarium and visualized facial bones appear intact, without suspicious lesions. Sinuses: Visualized sinuses and mastoids are clear. IMPRESSION: Atrophy and chronic ischemic change without acute hemorrhage, infarct or mass lesion Approved by: Juventino Byrnes M.D. on 07/01/2021 at 16:23
[2021-07-01 16:19] LABS: Add Manual Diff / Slide Review NO; Basophils Absolute Auto 0 /uL (0-100); Basophils Percent Auto 0.6 % (0-2); Eosinophils Absolute Auto 100 /uL (0-450); Eosinophils Percent Auto 1.4 % (2-4); Hemoglobin 12.9 g/dL (12.0-16.0); Lymphocytes Absolute Auto 1400 /uL (1100-4500); Lymphocytes Percent Auto 25.9 % (25-40); Mean Corpuscular HGB Conc 33.1 % (30-36); Mean Corpuscular Hemoglobin 28.2 PG (26-34); Mean Corpuscular Volume 85.2 fL (80-100); Monocytes Absolute Auto 500 /uL (0-900); Monocytes Percent Auto 10.3 % (3-14); Neutrophils Absolute Auto 3200 /uL (1500-7000); Neutrophils Percent Auto 61.8 % (50-75); Platelet Count 264 X10^3/uL (150-400); Red Blood Cell Count 4.58 X10^6/uL (4.0-5.2); Red Cell Distribution Width 15.1 % (11.6-14.8); White Blood Cell Count 5.3 X10^3/uL (4.5-11.0)
[2021-07-01 16:27] LABS: Alanine Aminotransferase 20 IU/L (<35); Albumin 4.4 g/dL (3.5-5.0); Albumin Globulin Ratio 1.4 (1.0-2.8); Alkaline Phosphatase 91 U/L (38-126); Aspartate Aminotransferase 33 IU/L (14-36); BUN Creatinine Ratio 12.5 (6-22); Blood Urea Nitrogen 18 mg/dL (7-17); Calcium 10.2 mg/dL (8.4-10.2); Carbon Dioxide 24 mmol/L (22-32); Chloride 103 mmol/L (98-107); Creatine Kinase 239 U/L (30-135); Estimated Glomerular Filt Rate 35.7 mL/min (>60); Globulin 3.1 g/dL (1.7-4.1); Glucose 87 mg/dL (80-110); Lipase 121 U/L (23-300); Potassium 3.6 mmol/L (3.4-5.1); Sodium 140 mmol/L (137-145); Total Protein 7.5 g/dL (6.3-8.2)
[2021-07-01 16:37] LABS: COVID19 -Nasal RAPID Negative (Negative)
[2021-07-01 16:40] LABS: HEMOLYSIS < 15 (0-50); Troponin I < 0.012 ng/mL (0.01-0.034)
[2021-07-01 16:42] LABS: CKMB % Relative Index 0.7 % (1.5-5.0); Creatine Kinase MB 1.79 ng/mL (<2.37)
[2021-07-01 18:23] LABS: Bacteria Urine None Seen; RBC Urine None Seen (0-5/HPF)
[2021-07-01 18:24] LABS: Appearance Urine UA CLEAR; Bilirubin Urine UA NEGATIVE (NEGATIVE); Glucose Urine UA NEGATIVE (Negative); Ketones Urine UA TRACE (NEGATIVE); Leukocyte Esterase Urine UA NEGATIVE (NEGATIVE); Nitrite Urine UA NEGATIVE (Negative); Occult Blood Urine UA NEGATIVE (Negative); Protein Urine UA NEGATIVE (Negative); Urobilinogen Urine UA 0.2 E.U./dL (0.2)
[2021-07-01] MEDS: IBUPROFEN 400 MG TABLET PO (18:25)
[2021-07-01] MEDS: ACETAMINOPHEN 325 MG TABLET 650 MG PO (18:25)
[2021-07-01 18:33] LABS: Color Urine UA Yellow; Culture Indicated Urine Cult Not Indicated; Squamous Epithelial Cell Urine 5-10 /HPF (0-5/HPF); WBC Urine 1-5/HPF (0-5/HPF)
== END 2021-07-01 20:18 | disposition home or self-care (01) ==
PROVIDERS: Emergency Provider Emergency Medicine; Family Provider Physician Assistant Medical; PCP Internal Medicine
DX: R53.1 Weakness (principal); F03.90 Unspecified dementia, unspecified severity, without behavioral disturbance, psychotic disturbance, mood disturbance, and anxiety; R41.82 Altered mental status, unspecified; R07.9 Chest pain, unspecified; Z20.822 Contact with and (suspected) exposure to COVID-19
CPT/HCPCS: 36415; 70450; 71045; 80053; 81001; 82550; 82553; 83690; 84484; 85025; 87635; 93005; 99284; C9803